=== PATIENT | female | born 1980 | race African-American/Black ===

== ENCOUNTER 2020-06-24 17:16 | Emergency (ER) | payer MEDICAID ==
--- NOTE | 2020-06-24 17:48 | ER Document Report ---
ED Medical Screen (RME) - General Chief Complaint: Psych Problem Stated Complaint: PSYCH, EAR PAIN Time Seen by Provider: 06/24/20 17:35 Primary Care Provider: KARINA ARNETT DO [Primary Care Provider] - Follow up as needed TRAVEL OUTSIDE OF THE [place] IN LAST 30 DAYS: No - HPI Notes: 06/24/20 17:45 40-year-old female to the emergency department with complaints of right ear pain and auditory hallucinations. Patient states that her right ear pain has been going on for some time. She states it hurts and it hurts when she swallows as well. Denies any fevers or chills. Denies any decrease in hearing or ringing in the ears. She states that she had put some drops in it but has not had any antibiotics or anything else for it. Her secondary complaint is that she is having depression and auditory hallucinations. She has a history of these hallucinations. She states that she has not been taking her Cogentin and Geodon. She denies any SI or HI. She states that the voices are not commanding her to do anything. She has had a attempt to hurt herself about 5 to 8 years ago where she cut her wrist with a knife. She states that there are 2 voices. When she talks about them she talks about them almost like she is an outsider looking in on a disagreement between 2 people. She states that the hallucinations are disrespecting her and throwing "lit cigarettes at her". Brief medical screening exam she is an otitis externa on the right ear. Patient is vague with her mental health complaints but also appears quite paranoid. I performed a brief medical screening exam on the patient determined that the patient needs further evaluation and management by main side provider. I have placed initial orders to help expedite care. - Related Data Allergies/Adverse Reactions: fluoxetine HCl [From Prozac] Adverse Reaction (Verified 07/20/15 03:09) Past Medical History - Past Medical History Cardiac Medical History: Denies: Hx Coronary Artery Disease, Hx Heart Attack, Hx Hypertension Pulmonary Medical History: Reports: Hx Asthma, Hx Pneumonia Denies: Hx Bronchitis, Hx COPD Neurological Medical History: Denies: Hx Cerebrovascular Accident. Comment Only: Hx Seizures - unsure Musculoskeltal Medical History: Denies Hx Arthritis, Reports Hx Musculoskeletal Trauma Psychiatric Medical History: Reports: Hx Anxiety, Hx Bipolar Disorder, Hx Depression, Hx Schizoaffective Disorder, Hx Schizophrenia Traumatic Medical History: Reports: Hx Fractures Past Surgical History: Reports: Hx Section - Immunizations Immunizations up to date: Yes Hx Diphtheria, Pertussis, Tetanus Vaccination: No Physical Exam - Vital signs Vitals: Temp Pulse Resp BP Pulse Ox 99.2 F 74 18 116/68 98 06/24/20 17:25 06/24/20 17:25 06/24/20 17:25 06/24/20 17:25 06/24/20 17:25 Course - Vital Signs Vital signs: Temp Pulse Resp BP Pulse Ox 99.2 F 74 18 116/68 98 06/24/20 17:25 06/24/20 17:25 06/24/20 17:25 06/24/20 17:25 06/24/20 17:25 Doctor's Discharge - Discharge Referrals: KARINA ARNETT DO [Primary Care Provider] - Follow up as needed
[2020-06-24 18:22] LABS: ABSOLUTE BASOPHILS # (AUTO) 0.1 10^3/uL (0.0-0.2); ABSOLUTE EOSINOPHILS # (AUTO) 0.2 10^3/uL (0.0-0.6); ABSOLUTE LYMPHOCYTES (AUTO) 2.2 10^3/uL (0.5-4.7); ABSOLUTE MONOCYTES (AUTO) 0.3 10^3/uL (0.1-1.4); ABSOLUTE NEUT (AUTO) 2.5 10^3/uL (1.7-8.2); BASOPHILS % (AUTO) 1.2 % (0-2); EOSINOPHILS % (AUTO) 4.4 % (0-6); HEMATOCRIT 26.6 % (36.0-47.0); HEMOGLOBIN 8.6 g/dL (12.0-15.5); LYMPHOCYTES % (AUTO) 42.1 % (13-45); MEAN CORPUSCULAR HEMOGLOBIN 25.2 pg (27.0-33.4); MEAN CORPUSCULAR HGB CONC 32.4 g/dL (32.0-36.0); MEAN CORPUSCULAR VOLUME 78 fl (80-97); MONOCYTES % (AUTO) 4.9 % (3-13); PLATELET COUNT 235 10^3/uL (150-450); RED BLOOD COUNT 3.42 10^6/uL (3.72-5.28); SEGMENTED NEUTROPHILS % (AUTO) 47.4 % (42-78); TOTAL CELLS COUNTED % (AUTO) 100 %; WHITE BLOOD COUNT 5.2 10^3/uL (4.0-10.5)
[2020-06-24 19:01] LABS: ANION GAP 9 (5-19); BLOOD UREA NITROGEN 13 mg/dL (7-20); CALCIUM 9.7 mg/dL (8.4-10.2); CARBON DIOXIDE 25 mmol/L (22-30); CHLORIDE 106 mmol/L (98-107); GLUCOSE 86 mg/dL (75-110); POTASSIUM 3.8 mmol/L (3.6-5.0)
[2020-06-24 19:03] LABS: ALCOHOL < 10 mg/dL (NONE DETECTED)
--- NOTE | 2020-06-24 19:40 | ER Document Report ---
ED General - General Mode of Arrival: Ambulatory Information source: Patient TRAVEL OUTSIDE OF THE [place] IN LAST 30 DAYS: No <MO GARCIA - Last Filed: 06/24/20 21:28> <BELLE MALDONADO - Last Filed: 06/24/20 21:47> - General Chief Complaint: Psych Problem Stated Complaint: PSYCH, EAR PAIN Time Seen by Provider: 06/24/20 17:35 Primary Care Provider: KARINA ANRETT DO [Primary Care Provider] - Follow up as needed Notes: This 40-year-old woman presents to the emergency department with a history of ear pain and history of psychiatric illness. She has a history of schizophrenia, but states that she has not followed up as an outpatient and is now running out of medications. She denies fever, nausea vomiting, or dizziness. She has hearing voices, however understands that the voices that she is hearing are not real. (MO GARCIA) - Related Data Allergies/Adverse Reactions: fluoxetine HCl [From [employer]] Adverse Reaction (Verified 07/20/15 03:09) Past Medical History - Social History Smoking Status: Never Smoker Family History: Reviewed & Not Pertinent - Past Medical History Cardiac Medical History: Denies: Hx Coronary Artery Disease, Hx Heart Attack, Hx Hypertension Pulmonary Medical History: Reports: Hx Asthma, Hx Pneumonia Denies: Hx Bronchitis, Hx COPD Neurological Medical History: Denies: Hx Cerebrovascular Accident. Comment Only: Hx Seizures - unsure Musculoskeletal Medical History: Denies Hx Arthritis, Reports Hx Musculoskeletal Trauma Psychiatric Medical History: Reports: Hx Anxiety, Hx Bipolar Disorder, Hx Depression, Hx Schizoaffective Disorder, Hx Schizophrenia Traumatic Medical History: Reports: Hx Fractures Past Surgical History: Reports: Hx Section - Immunizations Immunizations up to date: Yes Hx Diphtheria, Pertussis, Tetanus Vaccination: No <MO GARCIA - Last Filed: 06/24/20 21:28> Review of Systems <MO GARCIA - Last Filed: 06/24/20 21:28> - Review of Systems Notes: Constitutional: Negative for fever. HENT: + Right ear pain Eyes: Negative for visual changes. Cardiovascular: Negative for chest pain. Respiratory: Negative for shortness of breath. Gastrointestinal: Negative for abdominal pain, vomiting or diarrhea. Genitourinary: Negative for dysuria. Musculoskeletal: Negative for back pain. Skin: Negative for rash. Neurological: Negative for headaches, weakness or numbness. Psychiatric: + Auditory hallucinations, paranoia 10 point ROS negative except as marked above and in HPI. (MO GARCIA) Physical Exam <MO GARCIA - Last Filed: 06/24/20 21:28> - Vital signs Vitals: Temp Pulse Resp BP Pulse Ox 99.2 F 74 18 116/68 98 06/24/20 17:25 06/24/20 17:25 06/24/20 17:25 06/24/20 17:25 06/24/20 17:25 - Notes Notes: PHYSICAL EXAMINATION: Physical Exam: General: Well-nourished well-developed female in no acute distress HEENT: NC/AT, right EAC mild erythema, TM dull, tenderness external pinna, TM cerumen noted in the EAC, TM is intact, pupils equal round and reactive to light, MM moist,nares clear, oropharynx clear, airway patent Neck: supple, no adenopathy, no masses. Good range of motion Lungs: clear, no wheezing, no rales no rhonchi CVS: Regular rate and rhythm no murmur gallop or rub Abdomen: Soft, active, nontender, no masses, no hepatosplenomegaly Ext: No edema, clubbing or cyanosis. Neuro: Alert and responsive, moving all 4 extremities on command, cranial nerves intact, no focal findings Skin: Intact no open lesions, no rash PSYCH: Admits to auditory hallucinations, obviously paranoid status. (MO GARCIA) Course - Laboratory Result Diagrams: 06/24/20 17:52 06/24/20 17:52 <MO GARCIA - Last Filed: 06/24/20 21:28> - Laboratory Result Diagrams: 06/24/20 17:52 06/24/20 17:52 <BELLE MALDONADO - Last Filed: 06/24/20 21:47> - Re-evaluation Re-evalutation: 06/24/20 21:20 40-year-old woman with schizophrenia and poor compliance with medication. She has been right otitis externa with serous otitis media in the right ear. We will cover with antibiotics, patient is being held for psych evaluation. She is not homicidal not suicidal and will not require involuntary commitment. (MO GARCIA) - Vital Signs Vital signs: Temp Pulse Resp BP Pulse Ox 99.2 F 74 18 116/68 98 06/24/20 17:25 06/24/20 17:25 06/24/20 17:25 06/24/20 17:25 06/24/20 17:25 - Laboratory Laboratory results interpreted by me: 06/24/20 17:52 RBC 3.42 L Hgb 8.6 L Hct 26.6 L MCV 78 L MCH 25.2 L RDW 17.0 H 06/24/20 21:22 I have reviewed laboratory data and used this information for the treatment decisions regarding the patient. (MO GARCIA) Discharge <MO GARCIA - Last Filed: 06/24/20 21:28> <BELLE MALDONADO - Last Filed: 06/24/20 21:47> - Discharge Clinical Impression: Chronic serous otitis media, right ear, Schizoaffective disorder, Noncompliance with medication regimen Right otitis externa Qualifiers: Otitis externa type: unspecified type Chronicity: unspecified Qualified Code(s): H60.91 - Unspecified otitis externa, right ear Condition: Stable Disposition: HOME, SELF-CARE Additional Instructions: You have been evaluated by both medical and behavioral health teams for history of Schizoaffective Disorder, noncompliance with medication regimen, auditory hallucinations, and ear infection/pain. You have been deemed appropriate for discharge. While in the emergency department you received the following services/or had access to: Medical screening and assessment, nursing services, dietary services, pharmacological services, one-on-one counseling and/or psychotherapy, environmental services, and continuous observation by a patient health safety manager. Medication regimen is as follows: Add Haldol 5MG twice a day for psychosis Add Cogentin 1MG daily to curb tremor side effects often associated with antipsychotic medication You should take these medications as prescribed until you follow up with your outpatient medication provider at [facility] or other agency of choice unless you experience negative side effects then return to the emergency department. Bipolar Disorder (a combination of Bipolar and Schizophrenia symptoms can be Schizoaffective Disorder, and typically requires medication for symptom management) Bipolar disorder is also called manic-depressive disorder. Depression alternates with brain hyperactivity called katelyn. Each phase lasts from several days to a few weeks. We don't know exactly what causes bipolar disorder, but it's treatable. During the "manic phase," you may feel elated and energetic. You may have racing thoughts, rapid speech, increased activity, and grandiose ideas. During this time, you may not realize how poor your judgement is. Inappropriate spending, drug abuse, excessive alcohol use, marriage problems, and irresponsible sexual behavior are common during the manic phase. During the "depressive phase," you might feel depressed, guilty, worthless, fatigued, and unable to concentrate. You might have thoughts of suicide. Good treatments are available for bipolar disorder. [place] is a classic drug for bipolar disorder, and is still often useful. If the manic phase is very mild, an antidepressant alone can be prescribed. If the manic phase is very severe, an antipsychotic medicine (such as Haldol) may be needed. The treatment must be matched to your symptoms, so it's important to work closely with your psychiatric care provider. Contact your physician, the hospital emergency center, crisis line, or your counsellor if you are losing control or having self-destructive thoughts. Schizophrenia (a combination of Bipolar and Schizophrenia symptoms can be Schizoaffective Disorder, and typically requires medication for symptom manageme nt) Schizophrenia is a chemical disorder that affects how the brain functions. The exact cause is unknown, but it tends to run in families. It is NOT caused by emotional trauma. Schizophrenia causes disordered thinking, including unusual beliefs and inability to "process" happenings around the patient. Patients with schizophrenia benefit greatly from medicine. These medicines are called antipsychotics. Never stop the medicine without the doctor's approval. Counselling may help the patient deal with his disease. Schizophrenics require a very ordered environment. Stresses and sudden changes may bring out symptoms. Drugs and alcohol abuse may become problems. Contact the counsellor or crisis line if there are thoughts of suicide or of harming others, or if you become aware of unusual thoughts or beliefs. Follow-Up Plan: You are recommended to take the above medication as prescribed and follow up with medication provider at [facility] or other agency of choice. You have been provided both local mobile crisis numbers, as well as [facility] contact information. If your symptoms persist or worsen contact your physician immediately, utilize mobile crisis or [facility], or return to the emergency department. Referrals: KARINA ARNETT, [Primary Care Provider] - Follow up as needed [facility] [Outside] - Follow up as needed [facility] [Outside] - Follow up as needed [facility] [Outside] - Follow up as needed (Local Voluntary Inpatient treatment. Can walk in, call, or utilize mobile crisis to get linked. ) [facility] [Outside] - Follow up tomorrow (Walk in or call to see if can get sooner appointment.) [facility] [Outside] - Follow up as needed (To initiate services walk in Tuesdays-Fridays 8:00AM-12:00PM/Noon. Alternative local mental health agency.)
[2020-06-24 20:35] LABS: URINE AMPHETAMINES SCREEN NEGATIVE; URINE BARBITURATES SCREEN NEGATIVE; URINE BENZODIAZEPINES SCREEN NEGATIVE; URINE COCAINE SCREEN NEGATIVE; URINE MARIJUANA (THC) SCREEN NEGATIVE; URINE METHADONE SCREEN NEGATIVE; URINE PHENCYCLIDINE SCREEN NEGATIVE
[2020-06-24] MEDS ORDERED: AMOXICILLIN TRIHYDRATE 500 MG CAPSULE PO ONE (21:25)
[2020-06-24] MEDS ORDERED: BENZTROPINE MESYLATE 1 MG TABLET PO ONE (21:26)
[2020-06-24] MEDS ORDERED: ZIPRASIDONE HCL 40 MG CAPSULE PO ONE (21:26)
[2020-06-24] MEDS ORDERED: HALOPERIDOL 5 MG TABLET PO ONE (21:54)
[2020-06-24 23:06] VITALS: BP 118/65
--- NOTE | 2020-07-05 13:55 | PSYCHOLOGICAL NOTE ---
Psych Note - Psych Note Date seen by psych provider: 06/24/20 Time seen by psych provider: 20:15 Psych Note: Evaluation with patient from [id number]. Presenting Problem: Initially came in for ear pain. Auditory hallucinations (been in emergency depeartment 2014 where auditory hallucinations noted/not command/2 voices disrespectful to each other, had previously been on Geodon and Cogentin), History of Schizoaffective Disorder, and noncompliance with medication. Urine Drug Screen negative. Clinical Presentation: Reported Auditory Hallucinations History of Schizoaffective Disorder Been off medications and wants to get back on/linkage to outpatient treatment Medication recommendations made by the psychiatric medication provider, Dr. Augie MD., includes: Add Haldol 5MG twice a day for psychosis Add Cogentin 1MG daily to curb tremor side effects often associated with antispsychotic medications Impression/Plan: Patient is cleared from acute psychiatric services. She denied suicidal and homicidal ideation. She admitted to suicide attempt 5-8 years ago where she cut wrist with knife. She was open and honest about this. She identified a trigger being a person in her life currently from the past/trying to get away/many of her belongings being at their house after she had to get away and moved out, having a lot of trust problems, her mother and father being related but not knowing until much later, [facility] discharging her from services, and not having many local supports. She stated she has manic depression and schizoaffective disorder (seen in emergency department in 2014 for similar etiology). She noted having mental health disability. Patient stated she has a learning disability but has not been documented (takes a lot to learn things, lots of writing down and rewriting). She reported hallucinations of voices but was vague about what they said or if scary. She was able to express her wants/needs/thoughts/feelings. She could carry on dialogue conversation, answer questions appropriately, made fair eye contact and had appropriate interactions. She stated she wanted to get back one medications and linked to a provider. Provided patient with the outpatient mental health resource sheet which highlighted both mobile crisis numbers, noted walk in times for both [facility] and [facility] to initiate services, and listed [facility] for voluntary inpatient treatment. Also provided 5 day prescription to aid with hallucinations. Encouraged patient to walk in to her choice of the two outpatient providers tomorrow morning or as soon as possible. Consulted with Dr. Sweet regarding the management and care of patient. ED physician in agreement with recommendations.
== END 2020-06-24 23:11 | disposition home or self-care (01) ==
LOC: ER 17:16
DX: H65.21 Chronic serous otitis media, right ear (principal); H60.91 Unspecified otitis externa, right ear; F25.9 Schizoaffective disorder, unspecified; Z91.14 Patient's other noncompliance with medication regimen
CPT/HCPCS: 99284; 36415; 80307 ×2; 85025; 80048; J3490 ×2